=== PATIENT | female | born 1930 | race Caucasian/White ===

== ENCOUNTER 2016-12-03 20:05 | Observation (INO) | payer MEDICARE, BC ==
[~2016-12-03] VITALS: Ht 157.5 cm; Wt 66.4 kg
--- NOTE | ~2016-12-03 | HP ---
PATIENT'S NAME: [facility] AGE: 86 Y [address] [place] [facility] [place] [address] LOCATION: [facility] ADMIT DATE: 12/03/2016 History & Physical DISCHARGE DATE: FAMILY PHYSICIAN: PHYSICIAN, UNKNOWN ATTENDING PHYSICIAN: FLO MORENO V DATE OF SERVICE: CHIEF COMPLAINT: Right knee pain. HISTORY OF PRESENT ILLNESS: The patient is an 86-year-old female with multiple medical problems as detailed below. She has undergone a total right knee arthroplasty with Dr. Fernandez approximately 6 weeks ago. She has been rehabbing at a retirement facility out in [place]. She has developed worsening right knee pain and tenderness and was seen in the ER there. Dr. Fernandez's office was contacted and he requested for the patient to be transferred to [facility] for further evaluation. Unfortunately, the patient is a very non-forthcoming historian. All of her history, I had to extract from our medical records. She was recently treated for COPD exacerbation with a steroid taper, but aside from that, denies any chest pain, shortness of breath, nausea, vomiting, diarrhea, fevers, chills, or palpitations. She admits to right knee pain as described above. REVIEW OF SYSTEMS: All 10 systems have been reviewed and are negative aside from pertinent positives mentioned above. PAST MEDICAL HISTORY: As extracted from our records, 1. History of coronary artery disease, status post stenting 7 or 8 years ago. The patient is currently still on aspirin and Plavix. 2. History of COPD. 3. Documented history of diastolic heart failure. 4. Essential hypertension. CURRENT MEDICATIONS: 1. Aspirin. 2. Plavix. 3. Chlorzoxazone. 4. Colace. 5. Imdur. 6. Lasix. PATIENT'S NAME: [facility] AGE: 86 Y [address] ROOM: [place] [address] LOCATION: [facility] ADMIT DATE: 12/03/2016 History & Physical DISCHARGE DATE: FAMILY PHYSICIAN: PHYSICIAN, UNKNOWN ATTENDING PHYSICIAN: FLO MORENO V 7. Loratadine. 8. Losartan. 9. Metoprolol. 10. MiraLAX. 11. Multivitamin. 12. Nitrostat as needed. 13. Oxycodone. 14. Pantoprazole. 15. Pravastatin. 16. Tramadol. 17. Vitamin D3. 18. Promethazine and codeine syrup. 19. Mucinex. 20. Ipratropium. 21. Advair. 22. Xopenex. SOCIAL HISTORY: Positive for history of tobacco use, the patient quit approximately 27 years ago. FAMILY HISTORY: Reviewed and is noncontributory due to advanced age and known past medical history. PHYSICAL EXAMINATION: VITAL SIGNS: Temperature 98.3; blood pressure 124/60; heart rate 80; and saturating 88% on room air, coming up to mid 90s on 1 L nasal cannula. MD SERGO COTTON/mini /[id number] D: [id number] T: [id number] HISTORY & PHYSICAL
--- NOTE | ~2016-12-03 | HP ---
PATIENT'S NAME: ANAT[facility]Y [facility] AGE: 86 Y [address] ROOM: [place] [address] LOCATION: [facility] ADMIT DATE: 12/03/2016 History & Physical DISCHARGE DATE: FAMILY PHYSICIAN: PHYSICIAN, UNKNOWN ATTENDING PHYSICIAN: FLO MORENO V DATE OF SERVICE: CONTINUATION: PHYSICAL EXAMINATION: GENERAL: Appears a well-developed, well-nourished, elderly female, in no acute distress. NEUROLOGICAL: Nonfocal. EYES: Pupils are equal and reactive to light. LYMPHATIC: No cervical lymphadenopathy. ENDOCRINE: No thyromegaly. LUNGS: Coarse breath sounds at bases with slightly diminished breath sounds. HEART: Reveals regular rate and rhythm without appreciable murmurs, gallops, or rubs. GI: Abdomen is soft, nontender, nondistended. : Reveals no costovertebral angle tenderness. VASCULAR: Reveals 2+ pedal pulses. MUSCULOSKELETAL: Reveals a warm erythematous right knee with effusion. PSYCHIATRIC: Reveals moderately irritated mood and affect, but preserved cognition. SKIN: Warm and dry. LABORATORY DATA: Review of studies done at the outside facility significant for white count of 9.8 and unremarkable electrolytes. X-ray of the right knee shows an effusion and an intact hardware. ASSESSMENT AND PLAN: This is an 86-year-old female who is presenting with a suspected periprosthetic right knee infection. We will defer the management of this medical problems to Orthopedics. Additional problems to be addressed. 1. Possible need for additional surgery. The patient has had a nuclear stress test and an echocardiogram done in September of this year and has been previously cleared for surgery. At this point, her status has not changed. May proceed to surgery as per surgeon's comfort with aspirin and Plavix. We will hold the Plavix for the time being. 2. Chronic obstructive pulmonary disease exacerbation. This is now PATIENT'S NAME: [facility] AGE: 86 Y [address] ROOM: [place] [address] LOCATION: [facility] ADMIT DATE: 12/03/2016 History & Physical DISCHARGE DATE: FAMILY PHYSICIAN: PHYSICIAN, UNKNOWN ATTENDING PHYSICIAN: FLO MORENO V resolved, and she appears to be at her baseline. 3. Chronic diastolic congestive heart failure. We will continue her on current medication regimen. We will monitor volume status. 4. Coronary artery disease. Continue with statin and aspirin for now. 5. History of a pacemaker, noted. 6. Additional management will depend on clinical course and recommendations from Orthopedics. Time dedicated to this patient's encounter is 35 minutes. MD SERGO COTTON/mini /[id number] D: 051 T: 605 HISTORY & PHYSICAL
--- NOTE | ~2016-12-03 | CON ---
PATIENT'S NAME: DAO CARROLL [facility] AGE: 86 Y [address] ROOM: [id number] [place], [place] [address] LOCATION: [facility]3N ADMIT DATE: 12/03/2016 Consultation DISCHARGE DATE: FAMILY PHYSICIAN: PHYSICIAN, UNKNOWN ATTENDING PHYSICIAN: FLO MORENO V REFERRING PHYSICIAN: CARLOS A DOBSON MD HISTORY AND PHYSICAL Ms. Carroll is an 86-year-old female, who was transferred to [facility] this evening from the [facility] Emergency Room where she was diagnosed with a potential right knee infection. Her past orthopedic history is significant for having undergone a primary right total knee arthroplasty with me on October 14, 2016. She states that her knee is "doing fine." She states that she noticed mild redness along the incision approximately 5 days ago. This was not accompanied by any trend of increased discomfort. In fact, her knee continues to improve with time. She is experiencing residual low-grade pain, but this is decreasing with time. She states that she brought the erythema to the attention of her caregivers 4 or 5 days ago, but no one was alarmed by the appearance of the knee. She brought this to the attention of her primary care physician, Dr. Gonzalez, today. Dr. Gonzalez sent her to the [place] [facility]. It should be noted that the patient is residing at the [facility]. She has been there since she was discharged from [facility] last month. She notes that her knee range of motion continues to improve with time. She states that her knee feels better and functions better than it did before surgery. In fact, she has no concerns about her knee (other than the fact that there is slight erythema at the incision). It should be noted that neither the skilled nursing nor Dr. Gonzalez called me to alert me (or request my input) regarding the presence of erythema at the patient's knee. She states that the [facility] van dropped her off at the [place] [facility]. She was evaluated by Dr. Roberto Rios at the [place] [facility]. I did not speak to Dr. Rios directly. Dr. Rios spoke to the physician's assistant clinical nurse manager at my office while I was in the operating room and expressed concerns regarding abnormal laboratory data. He expressed concern that the knee was infected. This was relayed to me (via my PA and the OR circulating nurse), and I asked that the patient be brought into the hospital. Again, I was told that the knee was "swollen, painful, erythematous" and that the patient's C-reactive protein level was markedly elevated. The patient states that there has been no erythema at the knee. She denies fevers or chills. Tentative plans were made to aspirate the right knee and to perform an irrigation and debridement and resection arthroplasty if necessary. This was based upon what was reported to me. I specifically asked (via the operating room circulating nurse) for the patient to be brought here by the same van that had deposited her at the PATIENT'S NAME: DAO CARROLL [facility] AGE: 86 Y [address] ROOM: [id number] [place], [place] [address] LOCATION: [facility] ADMIT DATE: 12/03/2016 Consultation DISCHARGE DATE: FAMILY PHYSICIAN: PHYSICIAN, UNKNOWN ATTENDING PHYSICIAN: FLO MORENO V emergency room. Despite expressing this preference, the patient was transported to the [facility] by ambulance. Again, the patient has demonstrated no signs or symptoms of septicemia. She is hemodynamically stable, and, subjectively, the knee is feeling better and improving with time. The patient denies dysuria. She has a chronic cough and she states that this has been more severe than usual over the past 2 weeks. She states that she was treated for influenza A and subsequent bronchitis with oral antibiotics and prednisone few weeks ago. PHYSICAL EXAMINATION: GENERAL: The patient is alert and oriented and in no distress whatsoever. EXTREMITIES: The right knee demonstrates very mild erythema along the incision. The incision is completely epithelialized. There is no effusion at the knee. There is minimal tenderness at the knee. There is no abnormal warmth at the knee. There is neutral tibial femoral alignment. There is no calf swelling or tenderness. Range of motion of the right knee is from 0 to 120 degrees of flexion. There is no perceptible effusion whatsoever. There is no induration at the knee. There is no swelling at the knee. RECORDS REVIEW: I have reviewed Dr. Rios' note from the [place] [facility] this evening other than the laboratory data (specifically, abnormal ESR and CRP levels), he perceived no significant concerns for infection on physical examination. The ER note indicates that x-rays were obtained (for uncertain reasons). These were reportedly normal. These were not forwarded with the patient for me to review. However, I have reviewed the initial postoperative x-rays that we obtained at the time of the patient's initial postop followup appointment. These were completely normal. LABORATORY DATA: C-reactive protein level was 50. Erythrocyte sedimentation rate was 56. IMPRESSION: Despite the fact that the patient has elevated CRP and erythrocyte sedimentation rate levels, the knee appears completely benign. The knee is improving (subjectively and objectively). Indeed, there is very mild erythema at the knee, but there is no fluid to aspirate. I am completely reassured by the patient's physical examination and subjective trend of improvement. I suspect that the C-reactive protein level and erythrocyte sedimentation rate levels are elevated due to factors other than the knee. The most likely explanation would be the patient's pulmonary status. I have asked the Hospitalist Team to evaluate this. They have already obtained a chest x-ray. PATIENT'S NAME: CLARISSA CARROLLWINayla [facility] AGE: 86 Y [address] ROOM: [address] [address] LOCATION: [facility] ADMIT DATE: 12/03/2016 Consultation DISCHARGE DATE: FAMILY PHYSICIAN: PHYSICIAN, UNKNOWN ATTENDING PHYSICIAN: FLO MORENO V This patient does not require admission to the hospital. I have clarified that this will be a 23-hour observation encounter. I have had the nursing staff called [facility] this evening to let them know that they may come and pick the patient up tomorrow morning. I am so impressed by how the patient is doing (subjectively and objectively), they feel that she no longer needs to be at [facility]. The patient, herself, notes that the knee feels much better and is functioning much better than it did prior to her knee replacement. Prior to her knee replacement, she was getting by at home. She is ready to be transferred home from the skilled nursing later this week and outpatient physical therapy can be arranged. We are greatly relieved that her knee does not appear infected. I have reassured her that this does not seem to be the case, and I have asked her to contact me directly (as we have previously encouraged her to do) if she perceives any concern regarding the appearance of her knee. I have also encouraged her to have any of her other caregivers contact me (rather than her primary care physician or the emergency room) if they have any concerns regarding the status of her knee. I feel very strongly there is no indication to take this patient back to the skilled nursing by ambulance. Likewise, I perceive that the ambulance ride from [place] to here was not medically necessary either. I have asked the nursing staff to contact [facility] to ask them to have their van, come and pick her up tomorrow morning. Again, ambulance transport back to [facility] is unnecessary and medically not indicated. MD AYLIN SATNOS/mini /[id number] d: 12/04/160 t: 12/14/16 1202, CONSULTATION REPORT
[~2016-12-03 20:05] MED LIST: ADVAIR 250-501 EACH INH; ALBUTEROL2.5 MG/0.5 INH; ASPIRIN LO-DOSE81 MG PO; ATROVENT HFA12.9 G1 INH; CEFUROXIME250 MG PO; CHLORZOXAZONE500 MG PO; CLARITIN10 MG PO; COZAAR50 MG PO; HUMIBID LA (MU600 MG PO; IMDUR30 MG PO; LASIX40 MG PO; LOPRESSOR25 MG PO; NITROSTAT0.4 MG SL; OXYCODONE HCL10 MG PO; PLAVIX75 MG PO; PRAVACHOL40 MG PO; PROTONIX40 MG PO; THERA-VITE W/ B1 TAB PO; VITAMIN D-32000 UNI1 PO
[2016-12-03 20:27] LABS: BILIRUBIN URINE NEGATIVE (NEGATIVE); BLOOD URINE NEGATIVE /UL (NEGATIVE); COLOR URINE YELLOW (YELLOW); GLUCOSE URINE NEGATIVE (NEGATIVE); KETONE URINE NEGATIVE (NEGATIVE); LEUKOCYTES URINE NEGATIVE /UL (NEGATIVE); NITRITE URINE NEGATIVE (NEGATIVE); PROTEIN URINE NEGATIVE (NEGATIVE); TURBIDITY URINE CLEAR (CLEAR); UROBILINOGEN URINE 1 mg/dL (NORMAL)
[2016-12-03] MEDS ORDERED: TYLENOL EXTRA500 MG PO (21:27)
[2016-12-03] MEDS ORDERED: ZOFRAN4 MG PO (21:28)
[2016-12-03] MEDS ORDERED: ULTRAM50 MG PO (21:28)
[2016-12-03] MEDS ORDERED: MIRALAX PO527 GM/BOT PO (21:29)
[2016-12-03] MEDS ORDERED: COLACE100 MG PO (21:29)
[2016-12-03] MEDS ORDERED: PHENERGAN WITH15 ML PO (21:30)
[2016-12-03 21:31] LABS: INR - (THERAPEUTIC) 1.08 (0.92-1.07); PROTIME 11.4 SECONDS (9.8-11.4)
[2016-12-03] MEDS ORDERED: ATROVENT I0.5 MG/2.5 INH (21:31)
[2016-12-03] MEDS ORDERED: XOPENEX1.25 MG/3 INH ×2 (21:31→21:32)
--- NOTE | 2016-12-03 21:49 | NUR ---
86 Y/O FEMALE ADMITTED FOR POSSIBLE RT TOTAL KNEE INFECTION. PT HAS MANY ALLERGIES - LATEX, IODINE, SEE LIST IN [employer] MEDICAL & SURGICAL HISTORY IS EXTENSIVE, PLEASE SEE ADMISSION ASSESMENT PART 1. CAD, HTN, HIGH CHOL, PACER, 3RD DEGREE HEART BLOCK, STENT, DIASTOLIC HEART FAILURE, EF 60%, ASTHMA, DJD. GERD, CONSTIPATION, HEMORRHOIDS, INCONT URINE ON OCCASION, CURRENTLY HAS BRONCHITIS & DOING NEB TX. 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 FORMER SMOKER X20 YRS, QUIT IN 2007. REPORT GIVEN TO PT PRIMARY NURSE BEKAH BALBUENA ADM EDUCATION DONE
--- NOTE | 2016-12-04 07:09 | NUR ---
Significant Event: Redness to R) knee. 1 assist with wheelchair. CSM WNL. On room air. Last Oxycodone at 033. Plan to dismiss back to [address] today. Follow up:
--- NOTE | 2016-12-04 09:35 | NUR ---
Messages left a [facility] for Time Study Clerk and DON about needing to line up transportation back to their facility. 0930 Maria Teresa Davila, Social Work Director, called and they do not provide transportation outside of the city limits. Family or friends would need to transport. She also clarified what happened with patient that she landed here. Was sent to patients primary physician Dr. Almas Gonzalez, then was sent to [facility] and that ER sent via ambulance to our ER. [phone] Left messages on patients son's phone and friend Shannon Frances about transport. Called [facility] for additional phone numbers but had none. 1005 Introduced self to patient. She stated neither her son or friend could transport. 1010 Antonieta from [facility] called. She will talk to her people about transportation options again. 1025 [facility] was called. Would be about $220. 1030 Spoke with patient, she was okay with paying that bill. Has no money here but can pay once gets to [facility]. 1035 Santiago from [facility] stated it was fine for payment to be received at [facility]. Will email me a form that needs to be completed. Will plan on a 1245 pickup time. Patient and nursing informed of time. 1140 Char from [facility] called. They can be here at 1330 to get patient. Canceled [facility]. 1145 Notified nursing - Lauren and she will tell the patients nurse. 1200 Updated patient. 1320 Orders faxed. Nurse number left on packet.
--- NOTE | 2016-12-04 13:22 | NUR ---
Significant Event: PATIENT ALERT AND ORIENTED X3. 1300 VS 114/63, 14, 72, 97.8, 95% ON ROOM AIR. CSM ASSESSMENTS TO R) LOWER LEG WNL. OLD INCISION SITE TO R) KNEE WITH SOME REDNESS. AMBULATES TO BATHROOM AND UP TO CHAIR WITH 1 ASSIST, USE OF WALKER/GAIT BELT. C/O R) LEG PAIN, RECEIVED ROXICODONE 10MG AT 1314. BP'S THIS AM 99/47 ON R) ARM AND 110/46 ON L) ARM DR. BORREGO NOTIFIED, ORDER RECEIVED TO HOLD COZAAR. BP 114/63 THIS AFTERNOON. PATIENT PLEASANT AND COOPERATIVE WITH CARES. BILATERAL KNEE HIGH BEN'S ON. PATIENT REPORTS HAD BM YESTERDAY. Follow up:
--- NOTE | 2016-12-04 14:15 | NUR ---
D: PATIENT DISMISSED TO [facility] [place], TRANSFER PACKET SENT. PATIENT ASSISTED TO VEHICLE VIA W/C AND STUDENT NURSE AND CARCASS TRIMMER ASSISTANCE. SEE TRANSFER NOTE.
== END 2016-12-04 14:44 | disposition disaster alternative care site (69) ==
LOC: G3N 20:05
PROVIDERS: Orthopaedic Surgery; ADMIT Internal Medicine
DX: T84.53XA Infection and inflammatory reaction due to internal right knee prosthesis, initial encounter (principal); I11.0 Hypertensive heart disease with heart failure; I50.32 Chronic diastolic (congestive) heart failure; I25.10 Atherosclerotic heart disease of native coronary artery without angina pectoris; J44.1 Chronic obstructive pulmonary disease with (acute) exacerbation; E78.5 Hyperlipidemia, unspecified; F41.9 Anxiety disorder, unspecified; Z87.891 Personal history of nicotine dependence; Z96.651 Presence of right artificial knee joint; Z95.0 Presence of cardiac pacemaker
CPT/HCPCS: G0378; J7612